=== PATIENT | male | born 1945 | race Caucasian/White ===

== ENCOUNTER → 2017-12-26 | Outpatient (CLI) | payer MEDICARE, OTHER ==
[2015-08-17 14:36] VITALS: BP 118/83
[~2017-12-26] MED LIST: CHOL4POW3 PO; DIPH25CA58 PO; HYDR-2679 PO; HYDR-2762; TAMS0.4C2; TAMS0.4C97 PO; URSO250T3 PO
--- NOTE | 2017-12-26 17:45 | KCIC ---
MRI of the lumbar spine without contrast 12/26/2017 CLINICAL HISTORY: Low back pain which radiates down the right leg since Spring of this year. TECHNIQUE: Unenhanced T1-weighted and T2-weighted sagittal and axial and inversion recovery sagittal images of the lumbar spine were obtained. FINDINGS: Mild S-shaped curvature of the thoracolumbar spine is seen. Degenerative signal changes and loss of height are seen involving all of the disks of the lumbar spine. Degenerative signal changes are seen within the marrow surrounding these discs. The conus medullaris is normal in morphology, position, and signal characteristics. At the L1-2 disc space there is a mild generalized disc bulge. Degenerative changes are seen involving the facet joints bilaterally. These findings when combined do not result in significant central spinal canal or neural foraminal stenosis. At the L2-3 disc space there is a mild to moderate generalized disc bulge. This is eccentric to the right. Degenerative changes are seen involving the facet joints bilaterally. There is moderate ligamentum flavum hypertrophy bilaterally. These findings when combined result in mild to moderate right greater than left central spinal canal stenosis. Mild right neural foraminal stenosis is seen. The left neural foramen is patent. At the L3-4 disc space there is a moderate generalized disc bulge. Degenerative changes are seen involving the facet joints bilaterally. There is moderate ligamentum flavum hypertrophy bilaterally. These findings when combined result in moderate to severe central spinal canal stenosis. Mild to moderate right greater than left neural foraminal stenosis is seen. At the L4-5 disc space there is a mild generalized disc bulge. Degenerative changes are seen involving the facet joints bilaterally. There is mild ligamentum flavum hypertrophy bilaterally. These findings when combined do not result in significant central spinal canal stenosis. No neural foraminal stenosis is seen. At the L5-S1 disc space there is a mild generalized disc bulge. Degenerative changes are seen involving the facet joints, left greater than right. These findings when combined do not result in significant central spinal canal stenosis. Mild to moderate left neural foraminal stenosis is seen. The right neural foramen is patent. IMPRESSION: The changes of degenerative disc disease are seen throughout the lumbar spine. These findings result in mild to moderate right greater than left central spinal canal stenosis at L2-3 and moderate to severe central spinal canal stenosis at L3-4. Mild right neural foraminal stenosis is seen at L2-3. Mild to moderate right greater than left neural foraminal stenosis is seen at L3-4. Mild to moderate left neural foraminal stenosis is seen at L5-S1. Electronically signed by: Bernardo Ureña MD (12/26/2017 5:41 PM) [email or web address]
== END | disposition home or self-care (01) ==
LOC: KCIC MRI 15:04
PROVIDERS: ATTEND Orthopaedic Surgery Sports Medicine
DX: M76.891 Other specified enthesopathies of right lower limb, excluding foot (principal); M51.36 Other intervertebral disc degeneration, lumbar region; M48.061 Spinal stenosis, lumbar region without neurogenic claudication; K21.9 Gastro-esophageal reflux disease without esophagitis; Z96.652 Presence of left artificial knee joint; Z85.828 Personal history of other malignant neoplasm of skin
CPT/HCPCS: 72148

== ENCOUNTER → 2018-01-20 | Outpatient (CLI) | payer MEDICARE, OTHER ==
[2015-08-17 14:36] VITALS: BP 118/83
[~2018-01-20] MED LIST changes: +IOHEXOL 180 MG/ML 10 ML VIAL. ONE; +LIDOCAINE 1% PF 2 ML VIAL. ONE; +LISI10TA2 PO; +methylPREDNISolone ACETATE 40 MG/ML VIAL. ONE; +methylPREDNISolone ACETATE 80 MG/ML VIAL. ONE
--- NOTE | 2018-01-21 00:11 | PAIN ---
DATE OF SERVICE: 01/20/2018 INITIAL CONSULTATION FOR PAIN CLINIC CHIEF COMPLAINT: Low back and right lower extremity. HISTORY OF PRESENT ILLNESS: This is a 72-year-old male who presents with history of pain in the low back and the right lower extremity since about 2015. The patient reports this has been on and off for many years as he was injured in 1970 playing basketball and was spent extensive period of time in rehabilitation with lumbar traction and multiple physical therapies and was told he should have undergone surgery at that time but chose not to. The patient reports that throughout the rest of his life, he has been dealing with the pain but it has been fairly well managed when he can generally resting to get it feel better. Over the last 2 years, it has been more persistent and he is wishing to do something more definitive with it at this time. The patient reports the pain is a constant, sharp, throbbing, changing during the day; worse with activity, standing, walking, shooting, burning, radiating pain into the right lateral anterior thigh, anterior medial thigh, medial lower leg into the superior aspect of the medial calf and anterior tibia. The patient did have an MRI scan of the lumbar spine showing degenerative disk disease throughout the lumbar spine with [id number] right greater than left central spinal canal stenosis at L2-L3 and [id number]-er-hlbari central spinal stenosis at L3-L4, mild right neural foraminal stenosis at L2-L3 with [id number] right greater than left foraminal stenosis at L3-L4. The patient rates his disability rate from 0-10, 10 being the worst, is a 6 with family home responsibilities, social activity, 7 with recreation and sexual behavior, 5 with occupation and self-care and 0 with life support activities. The patient reports the pain awakens him from sleep occasionally, not every night, does not affect his bowel or bladder control but does affect his ability to walk, uses a cane, which he has with him today and he is using this on his left hand. The patient has had physical therapy in the past as well as exercise, which he is doing currently as well as walking daily, which seems to decrease the pain as well. The patient reports no symptoms on the left lower extremity, no complete motor loss but significant fatigability to the right leg with standing, walking, changing positions, again better with sitting or lying down. PAST MEDICAL HISTORY: Significant for hearing loss, hypertension, arthritis, skin cancer in 2013, which was excised on the nose and forearm. PAST SURGICAL HISTORY: Other surgeries include bladder surgery, left knee replacement, left elbow surgery and hernia repair in the past. CURRENT MEDICATIONS: Include Flomax, Celebrex and lisinopril. ALLERGIES: The patient has no known drug allergies. FAMILY HISTORY: Significant for no major medical problems or conditions that he is aware of. SOCIAL HISTORY: The patient does not smoke. Drinks alcohol socially but only very rarely. Does not use any illegal, illicit or recreational drugs. He is single, lives locally in [place], [place]. REVIEW OF SYSTEMS: The patient's review of systems is positive for those items mentioned in history of present illness. All systems reviewed and otherwise negative. It is complete, full and well documented on the patient's chart. PHYSICAL EXAMINATION: VITAL SIGNS: The patient's blood pressure is 134/102, pulse 96, respirations 18 and temperature 98.4 degrees Fahrenheit. Height is 5 feet 10 inches and weight is 204 pounds. GENERAL: The patient is awake, alert, oriented, appropriate and very pleasant demeanor. HEENT: Head shows normocephalic and atraumatic. Extraocular movements are intact and symmetrical. Oral cavity, mucous membranes are moist and pink. Dentition is intact. NECK: Shows anterior throat supple without palpable lymphadenopathy noted. Swallow reflex symmetrical. CHEST: Shows normal on inspection. Breath sounds clear to auscultation bilaterally. HEART: Shows S1 and S2 clear. No murmurs auscultated. ABDOMEN: Soft, obese, nontender and nondistended. No palpable organomegaly is noted. No rebound or guarding demonstrated. BACK: Shows spine grossly in the midline. Normal appearing thoracic kyphosis and some minor flattening of lumbar lordotic curvature. Lumbar paraspinous muscle shows symmetrical on inspection, on palpation shows some moderate tenderness diffusely in the low lumbar distribution only but without radiation, without trigger points. No tenderness over the spinous processes, sacrum or sacroiliac regions. The patient has good rotational motion of the lumbar spine, both laterally as well as extension and flexion without difficulty or pain reported. EXTREMITIES: Lower extremities show deep tendon reflexes at 1+/4 in the patellar and tendo-calcaneus tendons are equal. Motor exam is approximately 4 on a scale of 5 with right dorsiflexion, extension and 5/5 on the left, is true with quadriceps and hamstring flexion, 4/5 right, 5/5 left as well. Peripheral pulses are 1+ posterior tibia. No peripheral edema is noted bilaterally. Gaenslen's and Eron's maneuvers are negative bilaterally as well. Straight leg raise noted to be positive on the right at about 40 degrees. Left side is negative. The patient is able to stand, stand on his toes without significant difficulty or loss of balance, walks with a slight limping gait, does appear to favor the right lower extremity fairly significantly and again has a cane, uses in his left hand. The patient's skin is warm and dry, good turgor. No edema. No sores, rashes or bruising. IMPRESSION: 1. This is a 72-year-old male with a long history of low back and right lower extremity pain, worse over the past 2 years. 2. MRI scan of the lumbar spine as noted. 3. Arthritis. 4. Hypertension. 5. Hearing loss. PLAN: Options were discussed with the patient including conservative medical management with physical therapy, interventional techniques. He would like to pursue interventional techniques. We discussed a lumbar epidural steroid injection using description as well as anatomical models to describe the procedure. Risks were then discussed including, but not limited to bleeding, infection, possibility of epidural hematoma, subsequent neurological compromise, dural puncture, headaches, spinal cord and/or nerve damage, side effects of steroid medication and poor results regarding pain control. The patient understands and wished to proceed. The patient will return to the clinic in approximately 2 weeks for followup, was counseled as to return appointment, activity level and side effects to be aware of. DIAGNOSIS: Lumbar radiculopathy with lumbar degenerative disk disease. PROCEDURE: Lumbar epidural steroid injection, translaminar approach, L3-L4 level using C-arm fluoroscopic guidance under sterile prep and drape using local anesthetic. MEDICATION INJECTED: A total of 120 mg Depo-Medrol plus 10 mL of preservative-free normal saline and 2 mL of Isovue for contrast. CONDITION AT DISCHARGE: Stable. The patient tolerated the procedure well and had no complications. ELLIOT FLORES MD DR: ERIC/antonio JOB#: [id number] / [id number] SAV Costa MD
== END | disposition home or self-care (01) ==
LOC: PNCL 07:58 → MERGE 08:20
PROVIDERS: ATTEND Anesthesiology
DX: M51.16 Intervertebral disc disorders with radiculopathy, lumbar region (principal); I10 Essential (primary) hypertension; M19.90 Unspecified osteoarthritis, unspecified site; H91.90 Unspecified hearing loss, unspecified ear; Z85.828 Personal history of other malignant neoplasm of skin; Z96.652 Presence of left artificial knee joint; Z98.890 Other specified postprocedural states; Z79.899 Other long term (current) drug therapy; Z72.89 Other problems related to lifestyle
CPT/HCPCS: 62323; J1030; J1040; Q9965

== ENCOUNTER → 2018-02-13 | Outpatient (CLI) | payer MEDICARE, OTHER ==
[2015-08-17 14:36] VITALS: BP 118/83
[~2018-02-13] MED LIST changes: -HYDR-2762; +HYDR-2765; -IOHEXOL 180 MG/ML 10 ML VIAL. ONE; -LIDOCAINE 1% PF 2 ML VIAL. ONE; -methylPREDNISolone ACETATE 40 MG/ML VIAL. ONE; -methylPREDNISolone ACETATE 80 MG/ML VIAL. ONE
--- NOTE | 2018-02-13 12:10 | PAIN ---
DATE OF SERVICE: 02/13/2018 PROGRESS NOTE FOR PAIN CLINIC DIAGNOSES: Lumbar radiculopathy with lumbar degenerative disk disease, HISTORY OF PRESENT ILLNESS: The patient is a 72-year-old male returns for followup status post lumbar epidural steroid injection x 1 on 01/20/2018. The patient did very well with this. He has got about 25% improvement overall. He reports he has been increasing his activity with greater ease and comfort, walking greater distances, able to do household activities, has been chopping wood quite a bit, which makes him tired, but does not exacerbate his back pain. His right leg also he feels is much more trustworthy. He feels more stable on it. He has been increasing his activity with greater ease and comfort. The patient reports he is sleeping well at night. It does not awakening him from sleep, has no significant new findings. The patient reports his pain as 6 on a scale of 10 at its worst, 5 on average, 3 at its least and 3 today. The patient reports it is sometimes sharp across the low back into the right lower extremity, right anterior thigh and anterior medial thigh as well, but only rarely now since his injection. The patient reports no new motor or sensory deficits. No new bowel or bladder incontinence or other complaints. PHYSICAL EXAMINATION: VITAL SIGNS: The patient's blood pressure 136/87, pulse 88, respirations 18, temperature 98.3 degrees Fahrenheit, height 6 feet, weighs 197 pounds. GENERAL: The patient is awake, alert, oriented, appropriate, very pleasant demeanor. HEENT: Head is normocephalic, atraumatic. Extraocular movements intact and symmetrical. Oral cavity, mucous membranes are moist and pink. Dentition intact. NECK: Shows anterior throat supple without palpable lymphadenopathy noted. Swallow reflex symmetrical. CHEST: Shows normal on inspection. Breath sounds are clear to auscultation bilaterally. HEART: Shows S1, S2 clear. No murmurs auscultated. ABDOMEN: Soft, nontender, nondistended, obese. No palpable organomegaly is noted. No rebound or guarding demonstrated. BACK: Shows spine grossly in the midline. Normal appearing thoracic kyphosis and lumbar lordotic curvature. Lumbar paraspinous shows symmetrical on inspection with palpation some moderate tenderness only diffusely in the lower lumbar distribution without significant radiation. EXTREMITIES: The patient's lower extremity showed deep tendon reflexes at 1+ in the patellar and tendo calcaneus tendons. Motor exam is approximately 4 on a scale of 5 on the right dorsiflexion and extension and 5/5 on the left. Patient's peripheral pulses are 1+ posterior tibial. No peripheral edema is noted bilaterally. PLAN: Options were discussed with the patient. The patient's old chart was reviewed as well as his current medication regimen updated. Current review of systems updated today as well. We will hold on any further injections at this time, the patient is doing quite well, he is increasing his activities with greater ease and comfort. We have encouraged him to maintain this. He is also joining the [employer] next month and would like to try the pool therapy there as well on his own and will do that. We will leave the appointments open at this time for followup. The patient was encouraged to increase his activity as tolerated, but with some caution with his low back and right leg. If this starts to become more painful, the patient will follow up for a second injection at that time. ELLIOT FLORES MD DR: ERIC/antonio JOB#: [id number] / [id number]
== END | disposition home or self-care (01) ==
LOC: PNCL 07:32
PROVIDERS: ATTEND Anesthesiology
DX: M51.16 Intervertebral disc disorders with radiculopathy, lumbar region (principal)
CPT/HCPCS: G0463